=== PATIENT | female | born 1970 | race African-American/Black ===

== ENCOUNTER 2017-04-18 02:25 | Emergency (ER) | payer OTHER ==
[~2017-04-18] VITALS: Ht 167.6 cm; Wt 93.1 kg
[2017-04-18 02:47] LABS: HEMATOCRIT 39.7 % (36.0-46.0); HEMOGLOBIN 13.2 G/DL (11.9-15.5); MCH 29.4 PG (29.0-34.0); MCHC 33.2 G/DL (30.0-36.0); MCV 88.4 FL (83-99); PLATELET COUNT 295 K/uL (156-360); RBC DIS.WIDTH-CV 14.8 % (11.8-14.6); RBC DIS.WIDTH-SD 48.3 % (39-53); RED BLOOD COUNT 4.49 M/uL (3.80-5.20); WHITE BLOOD COUNT 9.1 K/uL (4.1-10.2)
[2017-04-18 02:58] LABS: CHLORIDE 105 mEq/L (99-109)
[2017-04-18 02:59] LABS: POTASSIUM 4.1 mEq/L (3.7-5.4); SODIUM 137 mEq/L (136-147)
[2017-04-18 03:00] LABS: GLUCOSE 120 mg/dL (70-99)
[2017-04-18 03:04] LABS: CREATININE 0.9 mg/dL (0.6-1.3)
[2017-04-18 03:05] LABS: UREA NITROGEN (BUN) 19 mg/dL (9-23)
[2017-04-18 03:08] LABS: TROP-I INTERPRETATION NEGATIVE; TROPONIN-I < 0.01 ng/mL (0.0-0.30)
[2017-04-18 03:09] LABS: GFR ESTIMATE (CALCULATED) > 59 mL/min/
[2017-04-18 04:00] VITALS: BP 115/62
[2017-04-18] MEDS ORDERED: TORADOL10 MG PO (04:14)
[2017-04-18] MEDS ORDERED: PROVENTIL HFA6.7 GM IH (04:14)
[2017-04-18] MEDS ORDERED: ZITHROMAX Z-PA250 MG PO (04:14)
== END 2017-04-18 04:32 | disposition home or self-care (01) ==
LOC: EME 02:25
PROVIDERS: Emergency Medicine
DX: J18.9 Pneumonia, unspecified organism (principal); K21.9 Gastro-esophageal reflux disease without esophagitis; M54.9 Dorsalgia, unspecified; G89.29 Other chronic pain; F17.200 Nicotine dependence, unspecified, uncomplicated
CPT/HCPCS: 71046; 80048; 84484; 85027; 87502; 93005; 99281; 99284